=== PATIENT | female | born 1960 ===

== ENCOUNTER 2019-01-29 13:51 | Inpatient (IN) | payer MEDICARE ==
[~2019-01-29] VITALS: Ht 157.5 cm; Wt 64.6 kg
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
[2019-01-29] MEDS ORDERED: SODIUM CHLORIDE 0.9% 1,000ML IVBOLUS ONE ×3 (14:30→15:00)
[2019-01-29] MEDS ORDERED: SODIUM CHLORIDE FLUSH 10ML SYR IVF ONE ×2 (14:30→15:00)
[2019-01-29 14:36] LABS: ALANINE AMINOTRANSFERASE 303 U/L (12-78); ALBUMIN 2.5 g/dL (3.4-5.0); ANION GAP 15 mmol/L (5-15); CHLORIDE 125 mmol/L (98-107); CREATININE 2.37 mg/dL (0.55-1.02)
[2019-01-29 14:39] LABS: ALKALINE PHOSPHATASE 195 U/L (45-117); CREATINE KINASE, TOTAL 840 U/L (26-192); TOTAL PROTEIN 6.9 g/dL (6.4-8.2)
[2019-01-29 14:40] LABS: INTERNATIONAL NORMALIZED RATIO 1.04 (0.93-1.1); PROTHROMBIN TIME 10.9 Seconds (9.6-11.5)
[2019-01-29] MEDS ORDERED: SODIUM CHLORIDE 0.9% 1,000 ML IV ONE (14:40)
[2019-01-29 14:48] LABS: MD YES; MEAN CORPUSCULAR HEMOGLOBIN 35.5 pg (27.0-34.8); MEAN CORPUSCULAR HGB CONC 33.2 g/dL (32.4-35.8); MEAN CORPUSCULAR VOLUME 106.8 fL (80-100); MEAN PLATELET VOLUME 10.9 fL (7.4-10.4); PLATELET COUNT 352 x10^3/uL (130-400); RED BLOOD COUNT 4.39 x10^6/uL (3.82-5.3); RED CELL DISTRIBUTION WIDTH 15.3 % (9.6-15.2)
[2019-01-29] MEDS ORDERED: CLINDAMYCIN PMX 600MG/50ML 50 ML ONE (14:54)
[2019-01-29] MEDS ORDERED: CLINDAMYCIN PMX 600MG/50ML 50 ML IV ONE (15:00)
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
[2019-01-29 15:02] LABS: BAND#(MANUAL) 3.09 x10^3/uL; BANDS%(MANUAL) 15 % (0-7); SEG#(MANUAL) 12.36 x10^3/uL (1.8-6.8); SEGS% (MANUAL) 60 % (42-75)
[2019-01-29 15:15] LABS: <PLATELET ESTIMATE> INCREASED; GIANT PLATELETS 1+; LARGE PLATELETS 1+; PMNS WITH VACUOLES 1+; TOXIC GRAN 2+
[2019-01-29 15:16] LABS: ANISOCYTOSIS 1+
[2019-01-29] MEDS ORDERED: LORazepam 2 MG/ML, 1ML ONE ×2 (15:16→15:51)
--- NOTE | 2019-01-29 15:19 | NUR ---
LAB CALLED WITH BLOOD GAS RESULTS. PER PURSE MAKER THAT YAHAIRA SPECIMEN, IT APPEARED VENOUS. DR. STEPHENS NOTIFIED, NO NEED TO REDRAW ABG; VBG RESULTS RELEASED.
[2019-01-29] MEDS: LORazepam 2 MG/ML, 1ML IVPush PRN ×4 (15:20→16:20)
[2019-01-29 15:22] LABS: LYMPH#(MANUAL) 2.27 x10^3/uL (1-3.4); LYMPHS% (MANUAL) 11 % (22-44); METAMYELOCYTES# (MANUAL) 0.82 x10^3/uL (0-0); METAMYELOCYTES% (MANUAL) 4 % (0-1); MONOS#(MANUAL) 0.62 x10^3/uL (0.3-2.7); MONOS% (MANUAL) 3 % (2-9); MYELOCYTES# (MANUAL) 0.62 x10^3/uL (0-0); MYELOCYTES% (MANUAL) 3 % (0-0); REACTIVE LYMPHS # (MANUAL) 0.41 x10^3/uL (0-0); REACTIVE LYMPHS % (MANUAL) 2 % (0-0)
[2019-01-29 15:24] LABS: NRBC % (MANUAL) 1 % (0-1); OTHER CELLS # (MANUAL) 0.41 x10^3/uL (0-0); OTHER CELLS % (MANUAL) 2 % (0-0)
[2019-01-29] MEDS ORDERED: THIAMINE 100 MG/ML, 2ML IM ONE ×2 (15:30→17:00)
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
[2019-01-29] MEDS ORDERED: THIAMINE 100MG TABLET PO ONE (16:00)
--- NOTE | 2019-01-29 16:31 | NUR ---
Pt had second BM, linens changed, pt cleaned, pt contines to be tremulous, medicated per emar
[2019-01-29] MEDS ORDERED: THIAMINE 100MG TABLET ONE (16:33)
[2019-01-29] MEDS ORDERED: THIAMINE 100 MG/ML, 2ML ONE (16:33)
--- NOTE | 2019-01-29 16:48 | NUR ---
Late note: pt increasingly altered after MD mariela ok to given thiamine IM instead of IV, pt eventually calm, resting, arousable to physical stimuli.
[2019-01-29 17:11] LABS: CALCIUM 7.3 mg/dL (8.5-10.1); CREATININE 1.83 mg/dL (0.55-1.02)
--- NOTE | 2019-01-29 17:12 | NUR ---
Report to Yumiko BENJAMIN, pt ready for transport to floor
[2019-01-29 17:18] LABS: CHLORIDE 135 mmol/L (98-107)
[2019-01-29 17:24] LABS: CULTURE INDICATED? YES; MICROSCOPIC INDICATED
[2019-01-29 17:26] LABS: ANION GAP 7 mmol/L (5-15)
--- NOTE | 2019-01-29 17:34 | NUR ---
Pt condition remained unchanged during transport and transfer of care to CCU
--- NOTE | 2019-01-29 17:35 | NUR ---
Fluids infusing to floor
[2019-01-29] MEDS ORDERED: ONDANSETRON 2MG/ML, 2ML IVPush PRN (18:00)
[2019-01-29] MEDS: HEPARIN 5,000 UNITS/ML, 1ML SQ SCH (18:42)
[2019-01-29] MEDS: AMPICILLIN/SULBACTAM 3 GM in SODIUM CHLORIDE 0.9% 100 ML IV SCH (18:43)
[2019-01-29 19:04] LABS: CLOSTRIDIUM DIFFICILE TOXIN NEGATIVE (Negative)
[2019-01-29 19:05] LABS: CLOSTRIDIUM DIFFICILE ANTIGEN POSITIVE
[2019-01-29 19:16] LABS: AMPHETAMINE SCREEN, URINE Negative (Negative); BARBITURATE SCREEN, URINE Negative (Negative); BENZODIAZEPINE SCREEN, URINE Negative (Negative); CANNABINOID SCREEN, URINE Negative (Negative); COCAINE SCREEN, URINE Negative (Negative); METHADONE SCREEN, URINE Negative (Negative); OPIATE SCREEN, URINE Negative (Negative)
[2019-01-29] MEDS: LINEZOLID PMX 600MG/300ML 300 ML IV SCH (19:59)
[2019-01-29] MEDS: POTASSIUM CHLORIDE 40 MEQ in DEXTROSE 5% 1,000 ML IV SCH (19:59)
[2019-01-29] MEDS: VANCOMYCIN 50 MG/ML ORAL SUSP PO SCH (21:29)
[2019-01-29 22:35] LABS: ANION GAP 9 mmol/L (5-15); CALCIUM 7.4 mg/dL (8.5-10.1); CHLORIDE 132 mmol/L (98-107); CREATININE 1.89 mg/dL (0.55-1.02)
[2019-01-30] MEDS: AMPICILLIN/SULBACTAM 3 GM in SODIUM CHLORIDE 0.9% 100 ML IV SCH ×4 (01:09→17:20)
[2019-01-30] MEDS: HEPARIN 5,000 UNITS/ML, 1ML SQ SCH ×3 (02:38→17:19)
[2019-01-30] MEDS: VANCOMYCIN 50 MG/ML ORAL SUSP PO SCH ×4 (03:32→21:13)
[2019-01-30 04:53] LABS: CHLORIDE 132 mmol/L (98-107); MEAN CORPUSCULAR HEMOGLOBIN 35.7 pg (27.0-34.8); MEAN CORPUSCULAR HGB CONC 33.9 g/dL (32.4-35.8); MEAN CORPUSCULAR VOLUME 105.4 fL (80-100); MEAN PLATELET VOLUME 10.6 fL (7.4-10.4); PLATELET COUNT 274 x10^3/uL (130-400); RED CELL DISTRIBUTION WIDTH 15.1 % (9.6-15.2)
[2019-01-30 05:28] LABS: % IRON SATURATION 40 % (20-55); ALANINE AMINOTRANSFERASE 182 U/L (12-78); ALBUMIN 1.7 g/dL (3.4-5.0); ALKALINE PHOSPHATASE 132 U/L (45-117); ANION GAP 10 mmol/L (5-15); BILIRUBIN,TOTAL 0.5 mg/dL (0.2-1.0); CALCIUM 7.8 mg/dL (8.5-10.1); CREATINE KINASE, TOTAL 578 U/L (26-192); CREATININE 1.68 mg/dL (0.55-1.02); IRON LEVEL 51 mcg/dL (50-170); TOTAL IRON BINDING CAPACITY 126 mcg/dL (250-450)
[2019-01-30 05:40] LABS: MD YES
[2019-01-30 05:44] LABS: ANISOCYTOSIS 1+; BANDS%(MANUAL) 24 % (0-7); LYMPH#(MANUAL) 1.17 x10^3/uL (1-3.4); LYMPHS% (MANUAL) 8 % (22-44); MONOS#(MANUAL) 0.29 x10^3/uL (0.3-2.7); MONOS% (MANUAL) 2 % (2-9); MYELOCYTES# (MANUAL) 0.15 x10^3/uL (0-0); MYELOCYTES% (MANUAL) 1 % (0-0); PMNS WITH VACUOLES 1+; SEG#(MANUAL) 9.49 x10^3/uL (1.8-6.8); SEGS% (MANUAL) 65 % (42-75); TOXIC GRAN 2+
[2019-01-30 05:45] LABS: <PLATELET ESTIMATE> INCREASED; GIANT PLATELETS 1+; LARGE PLATELETS 1+
[2019-01-30] MEDS: LINEZOLID PMX 600MG/300ML 300 ML IV SCH ×2 (08:03→18:31)
[2019-01-30] MEDS: HYDROmorphone 2 MG/ML, 1ML IVPush PRN ×3 (09:02→22:00)
[2019-01-30] MEDS: POTASSIUM CHLORIDE 40 MEQ in DEXTROSE 5% 1,000 ML IV SCH (09:04)
[2019-01-30] MEDS: POTASSIUM CHLORIDE 10% 40 MEQ/30 ML UDC PO SCH ×3 (10:33→15:53)
[2019-01-30 12:53] LABS: ANION GAP 7 mmol/L (5-15); CHLORIDE 133 mmol/L (98-107); CREATININE 1.53 mg/dL (0.55-1.02)
[2019-01-30] MEDS ORDERED: SIMV20TA3 PO (13:04)
[2019-01-30] MEDS ORDERED: FENO160T PO (13:04)
[2019-01-30] MEDS ORDERED: AMOX1TAB64 PO (13:04)
[2019-01-30] MEDS ORDERED: ESCI20TA PO (13:04)
[2019-01-30] MEDS ORDERED: OMEP-110 PO (13:04)
[2019-01-30] MEDS ORDERED: GABA300C10 PO (13:04)
[2019-01-30 16:36] LABS: ANION GAP 8 mmol/L (5-15); CHLORIDE 134 mmol/L (98-107); CREATININE 1.47 mg/dL (0.55-1.02)
[2019-01-30] MEDS ORDERED: POTASSIUM CHLORIDE 40 MEQ in DEXTROSE 5% 1,000 ML IV SCH (18:30)
[2019-01-30 20:17] LABS: ANION GAP 8 mmol/L (5-15); CHLORIDE 134 mmol/L (98-107); CREATININE 1.38 mg/dL (0.55-1.02)
[2019-01-31] MEDS: AMPICILLIN/SULBACTAM 3 GM in SODIUM CHLORIDE 0.9% 100 ML IV SCH ×4 (00:40→17:24)
[2019-01-31 00:42] LABS: ANION GAP 6 mmol/L (5-15); CHLORIDE 132 mmol/L (98-107); CREATININE 1.23 mg/dL (0.55-1.02)
[2019-01-31] MEDS ORDERED: POTASSIUM CHLORIDE 20 MEQ PACKET ONE ×2 (01:59→22:00)
[2019-01-31] MEDS ORDERED: POTASSIUM CHLORIDE 10% 20 MEQ/15 ML UDC PO ONE (02:00)
[2019-01-31] MEDS: HEPARIN 5,000 UNITS/ML, 1ML SQ SCH ×3 (02:14→17:24)
[2019-01-31] MEDS ORDERED: POTASSIUM CHLORIDE 20 MEQ PACKET PO ONE (02:30)
[2019-01-31] MEDS: VANCOMYCIN 50 MG/ML ORAL SUSP PO SCH ×4 (03:20→21:51)
[2019-01-31] MEDS: HYDROmorphone 2 MG/ML, 1ML IVPush PRN (03:20)
[2019-01-31 05:18] LABS: ANION GAP 5 mmol/L (5-15); CALCIUM 8.3 mg/dL (8.5-10.1); CHLORIDE 131 mmol/L (98-107)
[2019-01-31 05:19] LABS: CREATININE 1.06 mg/dL (0.55-1.02)
[2019-01-31 09:06] LABS: ANION GAP 7 mmol/L (5-15); CALCIUM 8.3 mg/dL (8.5-10.1); CHLORIDE 129 mmol/L (98-107); CREATININE 1.17 mg/dL (0.55-1.02)
[2019-01-31] MEDS: LINEZOLID PMX 600MG/300ML 300 ML IV SCH ×2 (09:26→18:41)
[2019-01-31 09:35] LABS: MEAN CORPUSCULAR HGB CONC 33.7 g/dL (32.4-35.8); MEAN CORPUSCULAR VOLUME 106.7 fL (80-100); MEAN PLATELET VOLUME 10.7 fL (7.4-10.4); PLATELET COUNT 268 x10^3/uL (130-400); RED CELL DISTRIBUTION WIDTH 15.4 % (9.6-15.2)
[2019-01-31 10:14] LABS: MD YES
[2019-01-31 10:16] LABS: ANISOCYTOSIS 1+; BAND#(MANUAL) 2.34 x10^3/uL; BANDS%(MANUAL) 16 % (0-7); EOS#(MANUAL) 0.29 x10^3/uL (0.0-0.4); EOS% (MANUAL) 2 % (1-7); LYMPH#(MANUAL) 1.17 x10^3/uL (1-3.4); LYMPHS% (MANUAL) 8 % (22-44); MONOS#(MANUAL) 1.31 x10^3/uL (0.3-2.7); MONOS% (MANUAL) 9 % (2-9); SEG#(MANUAL) 9.49 x10^3/uL (1.8-6.8); SEGS% (MANUAL) 65 % (42-75)
[2019-01-31 10:17] LABS: TOXIC GRAN 2+
[2019-01-31 10:18] LABS: <PLATELET ESTIMATE> ADEQUATE; <PLT MORPHOLOGY> NORMAL PLT MORPH
[2019-01-31 11:18] LABS: ALBUMIN 1.7 g/dL (3.4-5.0)
[2019-01-31 11:22] LABS: BILIRUBIN, DIRECT 0.1 mg/dL (0.1-0.2); BILIRUBIN,INDIRECT 0.7 mg/dL (0.0-2.0); BILIRUBIN,TOTAL 0.8 mg/dL (0.2-1.0); TOTAL PROTEIN 4.8 g/dL (6.4-8.2)
[2019-01-31] MEDS: OXYcodone IR 5MG TABLET PO PRN ×3 (13:02→21:00)
--- NOTE | 2019-01-31 14:02 | NUR ---
TF Recommendations: Promote full goal 70 ml/hr
--- NOTE | 2019-01-31 14:16 | NUR ---
COMMERCIAL DEVELOPMENT MANAGER RECOMMEND: Chopped/ thins -Up at 90 degrees -PO only when alert -Straws ok -Meds floated Addendum: 01/31/19 at [address] Amended: Links added.
[2019-01-31 17:34] LABS: ANION GAP 6 mmol/L (5-15); CALCIUM 7.8 mg/dL (8.5-10.1); CHLORIDE 123 mmol/L (98-107); CREATININE 0.98 mg/dL (0.55-1.02)
[2019-01-31 20:34] VITALS: BP 116/75
[2019-01-31] MEDS: POTASSIUM CHLORIDE 10% 40 MEQ/30 ML UDC PO SCH (21:00)
[2019-01-31 21:22] LABS: ANION GAP 7 mmol/L (5-15); CALCIUM 8.2 mg/dL (8.5-10.1); CHLORIDE 121 mmol/L (98-107); CREATININE 1.12 mg/dL (0.55-1.02)
[2019-02-01] MEDS: AMPICILLIN/SULBACTAM 3 GM in SODIUM CHLORIDE 0.9% 100 ML IV SCH ×4 (01:02→18:11)
[2019-02-01 01:09] LABS: ANION GAP 5 mmol/L (5-15); CALCIUM 8.3 mg/dL (8.5-10.1); CHLORIDE 123 mmol/L (98-107); CREATININE 1.01 mg/dL (0.55-1.02)
[2019-02-01 02:33] VITALS: BP 130/78
[2019-02-01] MEDS: VANCOMYCIN 50 MG/ML ORAL SUSP PO SCH ×4 (03:09→21:13)
[2019-02-01] MEDS: HEPARIN 5,000 UNITS/ML, 1ML SQ SCH ×3 (03:09→18:11)
[2019-02-01 04:35] LABS: MEAN CORPUSCULAR HEMOGLOBIN 35.5 pg (27.0-34.8); MEAN CORPUSCULAR HGB CONC 33.5 g/dL (32.4-35.8); MEAN CORPUSCULAR VOLUME 105.8 fL (80-100); MEAN PLATELET VOLUME 10.6 fL (7.4-10.4); PLATELET COUNT 254 x10^3/uL (130-400); RED BLOOD COUNT 2.96 x10^6/uL (3.82-5.3); RED CELL DISTRIBUTION WIDTH 14.9 % (9.6-15.2)
[2019-02-01 04:59] LABS: CHLORIDE 122 mmol/L (98-107)
[2019-02-01 05:06] LABS: ALANINE AMINOTRANSFERASE 86 U/L (12-78); ALBUMIN 1.6 g/dL (3.4-5.0); ALKALINE PHOSPHATASE 117 U/L (45-117); ANION GAP 7 mmol/L (5-15); BILIRUBIN,TOTAL 0.6 mg/dL (0.2-1.0); CALCIUM 8.3 mg/dL (8.5-10.1); CREATININE 1.04 mg/dL (0.55-1.02); TOTAL PROTEIN 4.6 g/dL (6.4-8.2)
[2019-02-01 05:39] LABS: MD YES
[2019-02-01 05:41] LABS: BAND#(MANUAL) 1.27 x10^3/uL; BANDS%(MANUAL) 10 % (0-7); EOS#(MANUAL) 0.13 x10^3/uL (0.0-0.4); EOS% (MANUAL) 1 % (1-7); LYMPHS% (MANUAL) 11 % (22-44); MONOS#(MANUAL) 0.13 x10^3/uL (0.3-2.7); MONOS% (MANUAL) 1 % (2-9); SEG#(MANUAL) 9.78 x10^3/uL (1.8-6.8); SEGS% (MANUAL) 77 % (42-75)
[2019-02-01 05:42] LABS: <PLATELET ESTIMATE> ADEQUATE; ANISOCYTOSIS 1+; LARGE PLATELETS 1+; TOXIC GRAN 1+
[2019-02-01] MEDS: OXYcodone IR 5MG TABLET PO PRN ×4 (06:08→23:06)
[2019-02-01 06:56] VITALS: BP 125/79
[2019-02-01] MEDS ORDERED: MAGNESIUM SULFATE PMX 2GM/50ML 50 ML IV ONE (08:00)
[2019-02-01] MEDS: POTASSIUM CHLORIDE 10% 40 MEQ/30 ML UDC PO SCH (08:23)
[2019-02-01 13:40] VITALS: BP 111/71
[2019-02-01 20:17] VITALS: BP 132/70
[2019-02-02] MEDS: AMPICILLIN/SULBACTAM 3 GM in SODIUM CHLORIDE 0.9% 100 ML IV SCH ×4 (00:04→19:06)
[2019-02-02] MEDS: HEPARIN 5,000 UNITS/ML, 1ML SQ SCH ×3 (01:59→19:06)
[2019-02-02] MEDS: VANCOMYCIN 50 MG/ML ORAL SUSP PO SCH ×4 (03:24→21:58)
[2019-02-02] MEDS: OXYcodone IR 5MG TABLET PO PRN ×5 (03:24→22:35)
[2019-02-02 04:56] LABS: BASOPHILS # (AUTO) 0.02 x10^3/uL (0-0.1); BASOPHILS % (AUTO) 0 % (0-1); EOSINOPHILS # (AUTO) 0.29 x10^3/uL (0-0.4); EOSINOPHILS % (AUTO) 3 % (1-7); LYMPHOCYTES # (AUTO) 2.24 x10^3/uL (1-3.4); LYMPHOCYTES % (AUTO) 20 % (22-44); MD NO; MEAN CORPUSCULAR HEMOGLOBIN 35.2 pg (27.0-34.8); MEAN CORPUSCULAR HGB CONC 33.8 g/dL (32.4-35.8); MEAN CORPUSCULAR VOLUME 104.2 fL (80-100); MEAN PLATELET VOLUME 10.4 fL (7.4-10.4); MONOCYTES # (AUTO) 0.52 x10^3/uL (0.2-0.8); MONOCYTES % (AUTO) 5 % (2-9); NEUTROPHILS # (AUTO) 8.16 x10^3/uL (1.8-6.8); NEUTROPHILS % (AUTO) 73 % (42-75); PLATELET COUNT 270 x10^3/uL (130-400); RED BLOOD COUNT 2.87 x10^6/uL (3.82-5.3); RED CELL DISTRIBUTION WIDTH 15.2 % (9.6-15.2)
[2019-02-02 05:06] LABS: CALCIUM 7.8 mg/dL (8.5-10.1); CHLORIDE 117 mmol/L (98-107)
[2019-02-02 05:10] LABS: ANION GAP 8 mmol/L (5-15)
[2019-02-02 09:14] VITALS: BP 116/74
[2019-02-02 21:20] VITALS: BP 133/78
[2019-02-03 00:15] VITALS: BP 125/86
[2019-02-03] MEDS: AMPICILLIN/SULBACTAM 3 GM in SODIUM CHLORIDE 0.9% 100 ML IV SCH ×4 (00:50→19:00)
[2019-02-03] MEDS: HEPARIN 5,000 UNITS/ML, 1ML SQ SCH ×3 (03:15→18:10)
[2019-02-03] MEDS: OXYcodone IR 5MG TABLET PO PRN ×4 (03:15→18:10)
[2019-02-03] MEDS: VANCOMYCIN 50 MG/ML ORAL SUSP PO SCH ×4 (03:16→22:35)
[2019-02-03 06:59] VITALS: BP 148/84
[2019-02-03 08:42] LABS: HCT (SEDRATE) 34.3 % (34.6-47.8)
[2019-02-03] MEDS ORDERED: GADOBUTROL 7.5 MMOL/7.5 ML PFS ONE (14:43)
[2019-02-03 15:27] VITALS: BP 127/81
[2019-02-03 19:21] VITALS: BP 161/90
[2019-02-04] MEDS: AMPICILLIN/SULBACTAM 3 GM in SODIUM CHLORIDE 0.9% 100 ML IV SCH ×2 (00:45→06:33)
[2019-02-04 01:11] VITALS: BP 153/80
[2019-02-04] MEDS: OXYcodone IR 5MG TABLET PO PRN ×3 (02:27→20:19)
[2019-02-04] MEDS: HEPARIN 5,000 UNITS/ML, 1ML SQ SCH ×3 (02:27→18:31)
[2019-02-04] MEDS: VANCOMYCIN 50 MG/ML ORAL SUSP PO SCH ×2 (05:06→20:18)
[2019-02-04 07:53] LABS: ALANINE AMINOTRANSFERASE 59 U/L (12-78); ALBUMIN 1.7 g/dL (3.4-5.0); ANION GAP 7 mmol/L (5-15); CALCIUM 8.3 mg/dL (8.5-10.1); CHLORIDE 112 mmol/L (98-107); CREATININE 0.98 mg/dL (0.55-1.02)
[2019-02-04 07:55] LABS: ALKALINE PHOSPHATASE 321 U/L (45-117); BILIRUBIN,TOTAL 0.5 mg/dL (0.2-1.0); TOTAL PROTEIN 5.3 g/dL (6.4-8.2)
[2019-02-04 07:58] LABS: MEAN CORPUSCULAR HEMOGLOBIN 34.5 pg (27.0-34.8); MEAN CORPUSCULAR HGB CONC 32.3 g/dL (32.4-35.8); MEAN CORPUSCULAR VOLUME 106.8 fL (80-100); MEAN PLATELET VOLUME 9.4 fL (7.4-10.4); PLATELET COUNT 321 x10^3/uL (130-400); RED BLOOD COUNT 2.96 x10^6/uL (3.82-5.3); RED CELL DISTRIBUTION WIDTH 14.5 % (9.6-15.2)
[2019-02-04 08:12] LABS: BASOPHILS # (AUTO) 0.06 x10^3/uL (0-0.1); BASOPHILS % (AUTO) 1 % (0-1); EOSINOPHILS % (AUTO) 3 % (1-7); LYMPHOCYTES # (AUTO) 2.25 x10^3/uL (1-3.4); LYMPHOCYTES % (AUTO) 21 % (22-44); MD SCAN; MONOCYTES # (AUTO) 0.81 x10^3/uL (0.2-0.8); MONOCYTES % (AUTO) 7 % (2-9); NEUTROPHILS # (AUTO) 7.43 x10^3/uL (1.8-6.8); NEUTROPHILS % (AUTO) 69 % (42-75)
[2019-02-04 08:19] VITALS: BP 124/74
[2019-02-04] MEDS: ERTAPENEM 1 GM in SODIUM CHLORIDE 0.9% 50 ML IV SCH (11:00)
[2019-02-04 12:15] VITALS: BP 145/80
[2019-02-04 18:53] VITALS: BP 112/72
[2019-02-05] MEDS: OXYcodone IR 5MG TABLET PO PRN ×5 (00:05→19:54)
[2019-02-05 00:23] VITALS: BP 120/69
[2019-02-05] MEDS: HEPARIN 5,000 UNITS/ML, 1ML SQ SCH ×3 (02:41→19:54)
[2019-02-05 07:22] VITALS: BP 121/73
[2019-02-05] MEDS: VANCOMYCIN 50 MG/ML ORAL SUSP PO SCH ×2 (10:27→21:43)
[2019-02-05] MEDS: ERTAPENEM 1 GM in SODIUM CHLORIDE 0.9% 50 ML IV SCH (10:27)
[2019-02-05 14:04] VITALS: BP 119/72
[2019-02-05] MEDS: ESCITALOPRAM 10MG TABLET PO SCH (14:30)
[2019-02-05] MEDS: OMEPRAZOLE 20 MG CAPSULE.DR PO SCH (14:30)
[2019-02-05 18:36] VITALS: BP 106/65
[2019-02-06 01:08] VITALS: BP 105/67
[2019-02-06] MEDS: OXYcodone IR 5MG TABLET PO PRN ×5 (02:04→22:38)
[2019-02-06] MEDS: HEPARIN 5,000 UNITS/ML, 1ML SQ SCH ×3 (04:18→21:44)
[2019-02-06 06:36] VITALS: BP 111/72
[2019-02-06] MEDS: OMEPRAZOLE 20 MG CAPSULE.DR PO SCH (08:05)
[2019-02-06] MEDS: ESCITALOPRAM 10MG TABLET PO SCH (08:05)
[2019-02-06 09:15] LABS: CHLORIDE 111 mmol/L (98-107)
[2019-02-06 09:20] LABS: BASOPHILS # (AUTO) 0.09 x10^3/uL (0-0.1); BASOPHILS % (AUTO) 1 % (0-1); EOSINOPHILS # (AUTO) 0.24 x10^3/uL (0-0.4); EOSINOPHILS % (AUTO) 3 % (1-7); LYMPHOCYTES % (AUTO) 26 % (22-44); MD NO; MEAN CORPUSCULAR HEMOGLOBIN 34.2 pg (27.0-34.8); MEAN CORPUSCULAR HGB CONC 31.8 g/dL (32.4-35.8); MEAN CORPUSCULAR VOLUME 107.4 fL (80-100); MEAN PLATELET VOLUME 8.7 fL (7.4-10.4); MONOCYTES # (AUTO) 0.59 x10^3/uL (0.2-0.8); MONOCYTES % (AUTO) 7 % (2-9); NEUTROPHILS # (AUTO) 5.03 x10^3/uL (1.8-6.8); NEUTROPHILS % (AUTO) 63 % (42-75); PLATELET COUNT 364 x10^3/uL (130-400); RED BLOOD COUNT 2.75 x10^6/uL (3.82-5.3); RED CELL DISTRIBUTION WIDTH 14.7 % (9.6-15.2)
[2019-02-06] MEDS: ERTAPENEM 1 GM in SODIUM CHLORIDE 0.9% 50 ML IV SCH (10:00)
[2019-02-06] MEDS: VANCOMYCIN 50 MG/ML ORAL SUSP PO SCH ×2 (10:00→21:44)
[2019-02-06 10:38] LABS: ALBUMIN 1.6 g/dL (3.4-5.0); ALKALINE PHOSPHATASE 550 U/L (45-117); BILIRUBIN,TOTAL 0.2 mg/dL (0.2-1.0); CALCIUM 8.5 mg/dL (8.5-10.1); CREATININE 0.85 mg/dL (0.55-1.02); TOTAL PROTEIN 4.9 g/dL (6.4-8.2)
[2019-02-06 10:59] LABS: ALANINE AMINOTRANSFERASE 58 U/L (12-78); ANION GAP 12 mmol/L (5-15)
[2019-02-06 13:19] VITALS: BP 114/76
[2019-02-06] MEDS: LACTOBACILLUS CHEW TABLET PO SCH ×2 (18:08→21:44)
[2019-02-06 18:57] VITALS: BP 112/70
[2019-02-07 01:38] VITALS: BP 112/68
[2019-02-07] MEDS: OXYcodone IR 5MG TABLET PO PRN ×5 (03:57→22:43)
[2019-02-07] MEDS: HEPARIN 5,000 UNITS/ML, 1ML SQ SCH ×2 (04:09→11:19)
[2019-02-07 04:59] LABS: BASOPHILS % (AUTO) 1 % (0-1); EOSINOPHILS # (AUTO) 0.25 x10^3/uL (0-0.4); EOSINOPHILS % (AUTO) 3 % (1-7); LYMPHOCYTES # (AUTO) 2.18 x10^3/uL (1-3.4); LYMPHOCYTES % (AUTO) 26 % (22-44); MD NO; MEAN CORPUSCULAR HGB CONC 33.3 g/dL (32.4-35.8); MEAN CORPUSCULAR VOLUME 108.3 fL (80-100); MEAN PLATELET VOLUME 8.9 fL (7.4-10.4); MONOCYTES # (AUTO) 0.58 x10^3/uL (0.2-0.8); MONOCYTES % (AUTO) 7 % (2-9); NEUTROPHILS # (AUTO) 5.34 x10^3/uL (1.8-6.8); NEUTROPHILS % (AUTO) 63 % (42-75); PLATELET COUNT 464 x10^3/uL (130-400); RED BLOOD COUNT 2.68 x10^6/uL (3.82-5.3); RED CELL DISTRIBUTION WIDTH 14.9 % (9.6-15.2)
[2019-02-07 05:09] LABS: ANION GAP 8 mmol/L (5-15); CALCIUM 8.5 mg/dL (8.5-10.1); CHLORIDE 110 mmol/L (98-107); CREATININE 0.86 mg/dL (0.55-1.02)
[2019-02-07 06:47] VITALS: BP 116/72
[2019-02-07] MEDS: LACTOBACILLUS CHEW TABLET PO SCH ×3 (08:21→20:54)
[2019-02-07] MEDS: VANCOMYCIN 50 MG/ML ORAL SUSP PO SCH ×2 (08:21→20:54)
[2019-02-07] MEDS: ESCITALOPRAM 10MG TABLET PO SCH (08:22)
[2019-02-07] MEDS: OMEPRAZOLE 20 MG CAPSULE.DR PO SCH (08:22)
[2019-02-07] MEDS: ERTAPENEM 1 GM in SODIUM CHLORIDE 0.9% 50 ML IV SCH (11:19)
[2019-02-07 13:15] VITALS: BP 119/76
[2019-02-07] MEDS: ENOXAPARIN 40 MG/0.4 ML SQ SCH (17:00)
[2019-02-07] MEDS ORDERED: MAGNESIUM SULFATE PMX 2GM/50ML 50 ML IV ONE (17:00)
[2019-02-07 18:25] VITALS: BP 105/62
[2019-02-07] MEDS: POTASSIUM CHLORIDE 20 MEQ TAB.ER.PRT PO SCH (18:37)
[2019-02-08 01:07] LABS: BASOPHILS # (AUTO) 0.08 x10^3/uL (0-0.1); BASOPHILS % (AUTO) 1 % (0-1); EOSINOPHILS # (AUTO) 0.28 x10^3/uL (0-0.4); EOSINOPHILS % (AUTO) 3 % (1-7); LYMPHOCYTES # (AUTO) 1.95 x10^3/uL (1-3.4); LYMPHOCYTES % (AUTO) 23 % (22-44); MD NO; MEAN CORPUSCULAR HEMOGLOBIN 33.4 pg (27.0-34.8); MEAN CORPUSCULAR HGB CONC 31.1 g/dL (32.4-35.8); MEAN CORPUSCULAR VOLUME 107.5 fL (80-100); MEAN PLATELET VOLUME 8.4 fL (7.4-10.4); MONOCYTES % (AUTO) 7 % (2-9); NEUTROPHILS # (AUTO) 5.47 x10^3/uL (1.8-6.8); NEUTROPHILS % (AUTO) 65 % (42-75); PLATELET COUNT 499 x10^3/uL (130-400); RED BLOOD COUNT 2.73 x10^6/uL (3.82-5.3); RED CELL DISTRIBUTION WIDTH 14.6 % (9.6-15.2)
[2019-02-08 01:10] LABS: INTERNATIONAL NORMALIZED RATIO 0.89 (0.93-1.1); PROTHROMBIN TIME 9.4 Seconds (9.6-11.5)
[2019-02-08 01:11] LABS: ALANINE AMINOTRANSFERASE 33 U/L (12-78); ALBUMIN 1.6 g/dL (3.4-5.0); ANION GAP 9 mmol/L (5-15); CALCIUM 8.4 mg/dL (8.5-10.1); CHLORIDE 112 mmol/L (98-107); CREATININE 0.93 mg/dL (0.55-1.02)
[2019-02-08 01:20] LABS: ALKALINE PHOSPHATASE 366 U/L (45-117); BILIRUBIN,TOTAL < 0.1 mg/dL (0.2-1.0)
[2019-02-08 03:58] VITALS: BP 102/63
[2019-02-08] MEDS: OXYcodone IR 5MG TABLET PO PRN ×3 (06:42→14:52)
[2019-02-08 07:12] VITALS: BP 106/67
[2019-02-08] MEDS: POTASSIUM CHLORIDE 20 MEQ TAB.ER.PRT PO SCH (08:00)
[2019-02-08] MEDS: OMEPRAZOLE 20 MG CAPSULE.DR PO SCH (08:00)
[2019-02-08] MEDS: LACTOBACILLUS CHEW TABLET PO SCH ×3 (09:00→20:23)
[2019-02-08] MEDS: MAGNESIUM OXIDE 400 MG TABLET PO SCH (09:00)
[2019-02-08] MEDS: ESCITALOPRAM 10MG TABLET PO SCH (10:20)
[2019-02-08] MEDS: ERTAPENEM 1 GM in SODIUM CHLORIDE 0.9% 50 ML IV SCH (10:20)
[2019-02-08] MEDS: VANCOMYCIN 50 MG/ML ORAL SUSP PO SCH ×2 (10:20→20:23)
[2019-02-08 12:50] VITALS: BP 110/69
[2019-02-08] MEDS ORDERED: POTASSIUM CHLORIDE 20 MEQ TAB.ER.PRT PO ONE (13:00)
[2019-02-08] MEDS ORDERED: FENTANYL PF 100 MCG/2ML ONE ×3 (16:55→18:41)
[2019-02-08] MEDS: ENOXAPARIN 40 MG/0.4 ML SQ SCH (17:00)
[2019-02-08] MEDS ORDERED: ROCURONIUM 10MG/ML,5ML ONE (17:29)
[2019-02-08] MEDS ORDERED: ONDANSETRON 2MG/ML, 2ML ONE (17:29)
[2019-02-08] MEDS ORDERED: DEXAMETHASONE 4 MG/ML, 1ML ONE (17:29)
[2019-02-08] MEDS ORDERED: PROPOFOL 10 MG/ML, 20ML ONE (17:29)
[2019-02-08] MEDS ORDERED: GLYCOPYRROLATE 0.2MG/1ML, 5ML ONE (17:29)
[2019-02-08] MEDS ORDERED: NEOSTIGMINE 1 MG/ML, 10ML ONE (17:29)
[2019-02-08] MEDS ORDERED: SUCCINYLCHOLINE 20 MG/ML, 10ML ONE (17:29)
[2019-02-08] MEDS ORDERED: CEFAZOLIN 1,000 MG ONE (17:29)
[2019-02-08] MEDS ORDERED: BACITRACIN 50,000 UNIT ONE (17:42)
[2019-02-08] MEDS ORDERED: OXYcodone 5 MG/5 ML ORAL.SOL UDC PO PRN (18:00)
[2019-02-08] MEDS ORDERED: MECLIZINE CHEWABLE 25 MG TAB PO PRN (18:00)
[2019-02-08] MEDS ORDERED: LORazepam 2 MG/ML, 1ML IVPush PRN (18:00)
[2019-02-08] MEDS ORDERED: PROMETHAZINE 25 MG/ML, 1ML IV PRN (18:00)
[2019-02-08] MEDS ORDERED: ACETAMINOPHEN 325 MG TABLET PO PRN (18:00)
[2019-02-08] MEDS ORDERED: ONDANSETRON 2MG/ML, 2ML IV PRN (18:00)
[2019-02-08] MEDS ORDERED: ONDANSETRON ODT 8 MG PO PRN (18:00)
[2019-02-08] MEDS ORDERED: HYDROmorphone 2 MG/ML, 1ML IVPush PRN (18:00)
[2019-02-08] MEDS ORDERED: OXYcodone 5 MG/5 ML ORAL.SOL UDC ONE (18:41)
[2019-02-08] MEDS: FENTANYL PF 100 MCG/2ML IV PRN ×2 (18:45→19:02)
[2019-02-08 20:15] VITALS: BP 90/60
[2019-02-08] MEDS: D5%-0.45% NACL 1,000 ML IV SCH (22:19)
[2019-02-09 00:10] VITALS: BP 108/69
[2019-02-09] MEDS: OXYcodone IR 5MG TABLET PO PRN ×5 (00:40→18:29)
[2019-02-09 04:56] LABS: BASOPHILS % (AUTO) 0 % (0-1); EOSINOPHILS % (AUTO) 0 % (1-7); LYMPHOCYTES # (AUTO) 0.52 x10^3/uL (1-3.4); LYMPHOCYTES % (AUTO) 4 % (22-44); MD NO; MEAN CORPUSCULAR HEMOGLOBIN 35.4 pg (27.0-34.8); MEAN CORPUSCULAR HGB CONC 32.8 g/dL (32.4-35.8); MEAN CORPUSCULAR VOLUME 108.1 fL (80-100); MEAN PLATELET VOLUME 8.3 fL (7.4-10.4); MONOCYTES # (AUTO) 0.25 x10^3/uL (0.2-0.8); MONOCYTES % (AUTO) 2 % (2-9); NEUTROPHILS # (AUTO) 11.01 x10^3/uL (1.8-6.8); NEUTROPHILS % (AUTO) 93 % (42-75); PLATELET COUNT 562 x10^3/uL (130-400); RED BLOOD COUNT 2.57 x10^6/uL (3.82-5.3); RED CELL DISTRIBUTION WIDTH 14.6 % (9.6-15.2)
[2019-02-09 05:10] LABS: ALBUMIN 1.7 g/dL (3.4-5.0); ANION GAP 6 mmol/L (5-15); CALCIUM 8.1 mg/dL (8.5-10.1); CHLORIDE 109 mmol/L (98-107)
[2019-02-09 05:14] LABS: ALANINE AMINOTRANSFERASE 30 U/L (12-78); ALKALINE PHOSPHATASE 337 U/L (45-117); BILIRUBIN,TOTAL 0.2 mg/dL (0.2-1.0); CREATININE 0.92 mg/dL (0.55-1.02); TOTAL PROTEIN 5.3 g/dL (6.4-8.2)
[2019-02-09] MEDS: D5%-0.45% NACL 1,000 ML IV SCH (06:02)
[2019-02-09] MEDS: OMEPRAZOLE 20 MG CAPSULE.DR PO SCH (06:02)
[2019-02-09 07:26] VITALS: BP 110/67
[2019-02-09] MEDS: VANCOMYCIN 50 MG/ML ORAL SUSP PO SCH ×2 (10:42→19:59)
[2019-02-09] MEDS: ESCITALOPRAM 10MG TABLET PO SCH (10:42)
[2019-02-09] MEDS: LACTOBACILLUS CHEW TABLET PO SCH ×3 (10:42→19:59)
[2019-02-09] MEDS: MAGNESIUM OXIDE 400 MG TABLET PO SCH (10:42)
[2019-02-09] MEDS: ERTAPENEM 1 GM in SODIUM CHLORIDE 0.9% 50 ML IV SCH (10:49)
[2019-02-09 12:48] VITALS: BP 106/65
[2019-02-09] MEDS: ENOXAPARIN 40 MG/0.4 ML SQ SCH (17:41)
[2019-02-09 18:34] VITALS: BP 93/58
[2019-02-10 00:12] VITALS: BP 102/64
[2019-02-10] MEDS: OXYcodone IR 5MG TABLET PO PRN ×5 (04:11→22:26)
[2019-02-10 04:33] LABS: MEAN CORPUSCULAR HEMOGLOBIN 34.9 pg (27.0-34.8); MEAN CORPUSCULAR HGB CONC 32.6 g/dL (32.4-35.8); MEAN CORPUSCULAR VOLUME 107.3 fL (80-100); MEAN PLATELET VOLUME 8.2 fL (7.4-10.4); PLATELET COUNT 602 x10^3/uL (130-400); RED BLOOD COUNT 2.81 x10^6/uL (3.82-5.3); RED CELL DISTRIBUTION WIDTH 14.5 % (9.6-15.2)
[2019-02-10 04:38] LABS: ANION GAP 8 mmol/L (5-15); CALCIUM 8.9 mg/dL (8.5-10.1); CHLORIDE 111 mmol/L (98-107); CREATININE 0.88 mg/dL (0.55-1.02)
[2019-02-10 05:13] LABS: BASOPHILS # (AUTO) 0.08 x10^3/uL (0-0.1); BASOPHILS % (AUTO) 1 % (0-1); EOSINOPHILS # (AUTO) 0.25 x10^3/uL (0-0.4); EOSINOPHILS % (AUTO) 3 % (1-7); LYMPHOCYTES # (AUTO) 2.45 x10^3/uL (1-3.4); LYMPHOCYTES % (AUTO) 28 % (22-44); MD SCAN; MONOCYTES # (AUTO) 0.57 x10^3/uL (0.2-0.8); MONOCYTES % (AUTO) 7 % (2-9); NEUTROPHILS # (AUTO) 5.28 x10^3/uL (1.8-6.8); NEUTROPHILS % (AUTO) 61 % (42-75)
[2019-02-10 07:00] VITALS: BP 105/62
[2019-02-10] MEDS: ESCITALOPRAM 10MG TABLET PO SCH (08:25)
[2019-02-10] MEDS: OMEPRAZOLE 20 MG CAPSULE.DR PO SCH (08:25)
[2019-02-10] MEDS: MAGNESIUM OXIDE 400 MG TABLET PO SCH (08:25)
[2019-02-10] MEDS: LACTOBACILLUS CHEW TABLET PO SCH ×3 (08:25→20:37)
[2019-02-10] MEDS: VANCOMYCIN 50 MG/ML ORAL SUSP PO SCH ×2 (08:25→20:37)
[2019-02-10] MEDS: ERTAPENEM 1 GM in SODIUM CHLORIDE 0.9% 50 ML IV SCH (10:18)
[2019-02-10 14:00] VITALS: BP 137/78
[2019-02-10] MEDS ORDERED: AMPICILLIN/SULBACTAM 3 GM in SODIUM CHLORIDE 0.9% 100 ML IV SCH (16:30)
[2019-02-10] MEDS: ENOXAPARIN 40 MG/0.4 ML SQ SCH (17:12)
[2019-02-10] MEDS ORDERED: DIPHENHYDRAMINE 50 MG/ML, 1ML IVPush PRN (18:30)
[2019-02-10 19:18] VITALS: BP 113/69
[2019-02-11 00:12] VITALS: BP 119/67
[2019-02-11] MEDS: OXYcodone IR 5MG TABLET PO PRN ×4 (03:50→21:06)
[2019-02-11 05:57] LABS: BASOPHILS # (AUTO) 0.11 x10^3/uL (0-0.1); BASOPHILS % (AUTO) 2 % (0-1); EOSINOPHILS # (AUTO) 0.29 x10^3/uL (0-0.4); EOSINOPHILS % (AUTO) 4 % (1-7); LYMPHOCYTES # (AUTO) 2.24 x10^3/uL (1-3.4); LYMPHOCYTES % (AUTO) 29 % (22-44); MD NO; MEAN CORPUSCULAR HEMOGLOBIN 34.8 pg (27.0-34.8); MEAN CORPUSCULAR VOLUME 105.5 fL (80-100); MEAN PLATELET VOLUME 8.3 fL (7.4-10.4); MONOCYTES # (AUTO) 0.56 x10^3/uL (0.2-0.8); MONOCYTES % (AUTO) 7 % (2-9); NEUTROPHILS # (AUTO) 4.44 x10^3/uL (1.8-6.8); NEUTROPHILS % (AUTO) 58 % (42-75); PLATELET COUNT 615 x10^3/uL (130-400); RED BLOOD COUNT 2.86 x10^6/uL (3.82-5.3); RED CELL DISTRIBUTION WIDTH 14.3 % (9.6-15.2)
[2019-02-11 06:04] LABS: ANION GAP 7 mmol/L (5-15); CALCIUM 9.3 mg/dL (8.5-10.1); CHLORIDE 108 mmol/L (98-107)
[2019-02-11 07:47] VITALS: BP 112/72
[2019-02-11] MEDS: MAGNESIUM OXIDE 400 MG TABLET PO SCH (08:00)
[2019-02-11] MEDS: OMEPRAZOLE 20 MG CAPSULE.DR PO SCH (08:01)
[2019-02-11] MEDS: ESCITALOPRAM 10MG TABLET PO SCH (08:01)
[2019-02-11] MEDS: ERTAPENEM 1 GM in SODIUM CHLORIDE 0.9% 50 ML IV SCH (09:52)
[2019-02-11] MEDS ORDERED: VANCOMYCIN 50 MG/ML ORAL SUSP PO SCH ×2 (11:00→21:00)
[2019-02-11] MEDS: VANCOMYCIN 50 MG/ML ORAL SUSP PO SCH ×2 (12:12→21:00)
[2019-02-11 12:15] VITALS: BP 97/55
[2019-02-11] MEDS: ENOXAPARIN 40 MG/0.4 ML SQ SCH (17:01)
[2019-02-11 18:33] VITALS: BP 100/68
[2019-02-12 01:31] VITALS: BP 110/66
[2019-02-12] MEDS: OXYcodone IR 5MG TABLET PO PRN ×4 (01:35→20:27)
[2019-02-12 07:44] VITALS: BP 87/53
[2019-02-12] MEDS: OMEPRAZOLE 20 MG CAPSULE.DR PO SCH (08:59)
[2019-02-12] MEDS: ESCITALOPRAM 10MG TABLET PO SCH (08:59)
[2019-02-12] MEDS: MAGNESIUM OXIDE 400 MG TABLET PO SCH (08:59)
[2019-02-12] MEDS: VANCOMYCIN 50 MG/ML ORAL SUSP PO SCH ×2 (08:59→20:27)
[2019-02-12] MEDS: ERTAPENEM 1 GM in SODIUM CHLORIDE 0.9% 50 ML IV SCH (09:00)
[2019-02-12 14:07] VITALS: BP 85/48
[2019-02-12] MEDS: ENOXAPARIN 40 MG/0.4 ML SQ SCH (16:39)
[2019-02-12 18:24] VITALS: BP 109/68
[2019-02-13] MEDS: OXYcodone IR 5MG TABLET PO PRN ×6 (00:36→22:08)
[2019-02-13 00:38] VITALS: BP 94/58
[2019-02-13 04:55] LABS: BASOPHILS % (AUTO) 2 % (0-1); EOSINOPHILS % (AUTO) 8 % (1-7); HCT (SEDRATE) 31.1 % (34.6-47.8); LYMPHOCYTES # (AUTO) 1.93 x10^3/uL (1-3.4); LYMPHOCYTES % (AUTO) 31 % (22-44); MD NO; MEAN CORPUSCULAR HEMOGLOBIN 34.9 pg (27.0-34.8); MEAN CORPUSCULAR VOLUME 105.8 fL (80-100); MEAN PLATELET VOLUME 8.1 fL (7.4-10.4); MONOCYTES # (AUTO) 0.58 x10^3/uL (0.2-0.8); MONOCYTES % (AUTO) 9 % (2-9); NEUTROPHILS % (AUTO) 50 % (42-75); PLATELET COUNT 667 x10^3/uL (130-400); RED BLOOD COUNT 2.91 x10^6/uL (3.82-5.3); RED CELL DISTRIBUTION WIDTH 14.5 % (9.6-15.2)
[2019-02-13 05:21] LABS: CHLORIDE 108 mmol/L (98-107)
[2019-02-13 05:36] LABS: ALANINE AMINOTRANSFERASE 22 U/L (12-78); ALKALINE PHOSPHATASE 196 U/L (45-117); ANION GAP 9 mmol/L (5-15); BILIRUBIN,TOTAL 0.1 mg/dL (0.2-1.0); CALCIUM 8.8 mg/dL (8.5-10.1); CREATININE 0.93 mg/dL (0.55-1.02); TOTAL PROTEIN 5.6 g/dL (6.4-8.2)
[2019-02-13 06:44] VITALS: BP 97/57
[2019-02-13] MEDS: MAGNESIUM OXIDE 400 MG TABLET PO SCH (10:20)
[2019-02-13] MEDS: ESCITALOPRAM 10MG TABLET PO SCH (10:20)
[2019-02-13] MEDS: OMEPRAZOLE 20 MG CAPSULE.DR PO SCH (10:20)
[2019-02-13] MEDS: ERTAPENEM 1 GM in SODIUM CHLORIDE 0.9% 50 ML IV SCH (10:20)
[2019-02-13] MEDS: VANCOMYCIN 50 MG/ML ORAL SUSP PO SCH ×2 (10:22→22:07)
[2019-02-13] MEDS: maalox/diphenh/lido/sucralfate 5 ML PO PRN (14:47)
[2019-02-13 14:50] VITALS: BP 106/68
[2019-02-13] MEDS: ENOXAPARIN 40 MG/0.4 ML SQ SCH (18:31)
[2019-02-13 19:26] VITALS: BP 98/61
[2019-02-14 00:12] VITALS: BP 99/61
[2019-02-14] MEDS: OXYcodone IR 5MG TABLET PO PRN ×5 (03:01→22:18)
[2019-02-14] MEDS ORDERED: ONDANSETRON 4 MG TABLET PO PRN (07:30)
[2019-02-14 07:34] VITALS: BP 111/73
[2019-02-14] MEDS: VANCOMYCIN 50 MG/ML ORAL SUSP PO SCH ×2 (08:28→22:18)
[2019-02-14] MEDS: OMEPRAZOLE 20 MG CAPSULE.DR PO SCH (08:28)
[2019-02-14] MEDS: ESCITALOPRAM 10MG TABLET PO SCH (08:28)
[2019-02-14] MEDS: MAGNESIUM OXIDE 400 MG TABLET PO SCH (08:28)
[2019-02-14] MEDS: ERTAPENEM 1 GM in SODIUM CHLORIDE 0.9% 50 ML IV SCH (10:36)
[2019-02-14 12:01] VITALS: BP 111/75
[2019-02-14] MEDS: maalox/diphenh/lido/sucralfate 5 ML PO PRN ×2 (12:48→22:18)
[2019-02-14] MEDS: ENOXAPARIN 40 MG/0.4 ML SQ SCH (17:26)
[2019-02-14 18:46] VITALS: BP 99/60
[2019-02-15 01:37] VITALS: BP 107/66
[2019-02-15] MEDS: OXYcodone IR 5MG TABLET PO PRN ×4 (05:23→20:20)
[2019-02-15 06:38] VITALS: BP 86/54
[2019-02-15 09:43] VITALS: BP 105/62
[2019-02-15] MEDS: MAGNESIUM OXIDE 400 MG TABLET PO SCH (09:43)
[2019-02-15] MEDS: VANCOMYCIN 50 MG/ML ORAL SUSP PO SCH ×2 (09:44→20:20)
[2019-02-15] MEDS: OMEPRAZOLE 20 MG CAPSULE.DR PO SCH (09:44)
[2019-02-15] MEDS: ERTAPENEM 1 GM in SODIUM CHLORIDE 0.9% 50 ML IV SCH (09:44)
[2019-02-15] MEDS: ESCITALOPRAM 10MG TABLET PO SCH (09:44)
[2019-02-15 12:12] VITALS: BP 104/72
[2019-02-15] MEDS: ENOXAPARIN 40 MG/0.4 ML SQ SCH (18:00)
[2019-02-15 19:45] VITALS: BP 93/65
[2019-02-16 01:48] VITALS: BP 95/63
[2019-02-16] MEDS: OXYcodone IR 5MG TABLET PO PRN ×4 (03:20→21:17)
[2019-02-16 07:40] VITALS: BP 100/59
[2019-02-16] MEDS: MAGNESIUM OXIDE 400 MG TABLET PO SCH (09:08)
[2019-02-16] MEDS: OMEPRAZOLE 20 MG CAPSULE.DR PO SCH (09:08)
[2019-02-16] MEDS: VANCOMYCIN 50 MG/ML ORAL SUSP PO SCH ×2 (09:08→21:17)
[2019-02-16] MEDS: ESCITALOPRAM 10MG TABLET PO SCH (09:08)
[2019-02-16] MEDS: ERTAPENEM 1 GM in SODIUM CHLORIDE 0.9% 50 ML IV SCH (11:42)
[2019-02-16 13:03] VITALS: BP 93/60
[2019-02-16] MEDS: ENOXAPARIN 40 MG/0.4 ML SQ SCH (16:58)
[2019-02-16 19:00] VITALS: BP 102/65
[2019-02-17 01:59] VITALS: BP 113/67
[2019-02-17] MEDS: OXYcodone IR 5MG TABLET PO PRN ×2 (02:21→08:16)
[2019-02-17 06:39] VITALS: BP 109/70
[2019-02-17] MEDS ORDERED: VANC1VIA3 PO (06:52)
[2019-02-17] MEDS: VANCOMYCIN 50 MG/ML ORAL SUSP PO SCH (08:15)
[2019-02-17] MEDS: MAGNESIUM OXIDE 400 MG TABLET PO SCH (08:16)
[2019-02-17] MEDS: ESCITALOPRAM 10MG TABLET PO SCH (08:16)
[2019-02-17] MEDS: OMEPRAZOLE 20 MG CAPSULE.DR PO SCH (08:16)
[2019-02-17] MEDS: ERTAPENEM 1 GM in SODIUM CHLORIDE 0.9% 50 ML IV SCH (10:00)
== END 2019-02-17 10:58 | DRG 853 ==
LOC: ED 16:03 → SUATTDRO 16:03 → EDIP 16:20 → CCU 17:22 → 3NW 01-31 19:14
PROVIDERS: ADMIT Internal Medicine; ATTEND Internal Medicine
PROC: 0T9B70Z Drainage of Bladder with Drainage Device, Via Natural or Artificial Opening (ICD-10-PCS; 2019-01-29)
PROC: 0JBF0ZZ Excision of Left Upper Arm Subcutaneous Tissue and Fascia, Open Approach (ICD-10-PCS; 2019-02-08)
PROC: 0JB90ZZ Excision of Buttock Subcutaneous Tissue and Fascia, Open Approach (ICD-10-PCS; 2019-02-08)
PROC: 0JX70ZZ Transfer Back Subcutaneous Tissue and Fascia, Open Approach (ICD-10-PCS; 2019-02-08)
PROC: 0JB70ZZ Excision of Back Subcutaneous Tissue and Fascia, Open Approach (ICD-10-PCS; principal; 2019-02-08 16:00)
PROC: B5181ZA Fluoroscopy of Superior Vena Cava using Low Osmolar Contrast, Guidance (ICD-10-PCS; 2019-02-14)
PROC: 02HV33Z Insertion of Infusion Device into Superior Vena Cava, Percutaneous Approach (ICD-10-PCS; 2019-02-14)
PROC: B548ZZA Ultrasonography of Superior Vena Cava, Guidance (ICD-10-PCS; 2019-02-14)
DX: A41.01 Sepsis due to Methicillin susceptible Staphylococcus aureus (principal); L89.154 Pressure ulcer of sacral region, stage 4; G93.41 Metabolic encephalopathy; K72.00 Acute and subacute hepatic failure without coma; N17.0 Acute kidney failure with tubular necrosis; N39.0 Urinary tract infection, site not specified; A04.72 Enterocolitis due to Clostridium difficile, not specified as recurrent; E87.0 Hyperosmolality and hypernatremia; E87.1 Hypo-osmolality and hyponatremia; J98.11 Atelectasis; M62.82 Rhabdomyolysis; L03.312 Cellulitis of back [any part except buttock and flank]; L03.317 Cellulitis of buttock; D63.8 Anemia in other chronic diseases classified elsewhere; E83.42 Hypomagnesemia; E86.0 Dehydration; E87.6 Hypokalemia; E87.8 Other disorders of electrolyte and fluid balance, not elsewhere classified; I10 Essential (primary) hypertension; F17.200 Nicotine dependence, unspecified, uncomplicated; R62.7 Adult failure to thrive; F32.9 Major depressive disorder, single episode, unspecified; L89.319 Pressure ulcer of right buttock, unspecified stage; L89.129 Pressure ulcer of left upper back, unspecified stage; Y90.9 Presence of alcohol in blood, level not specified; D75.89 Other specified diseases of blood and blood-forming organs; F10.10 Alcohol abuse, uncomplicated; R94.5 Abnormal results of liver function studies; R65.20 Severe sepsis without septic shock; Z88.1 Allergy status to other antibiotic agents; Z88.5 Allergy status to narcotic agent; Z79.899 Other long term (current) drug therapy; Z68.26 Body mass index [BMI] 26.0-26.9, adult
CPT/HCPCS: 0399T; 36415; 36573; 36600; 70450; 71045; 72158; 74018; 76857; 80048; 80053; 80074; 80076; 80307; 81001; 82140; 82550; 82607; 82803; 83540; 83550; 83605; 83735; 84100; 84145; 84443; 85025; 85610; 85651; 85730; 86140; 86141; 87040; 87077; 87081; 87086; 87147; 87186; 87324; 87493; 93005; 93306; 96365; 96366; 97162; 99291; A9585; G0378; J0295; J0690; J1100; J1170; J1335; J1644; J1650; J2020; J2405; J2704; J2710; J3010; J3370; J3411; J3480; J7070; C1751; J0330; J1200; J2060; J3475; J7030